=== PATIENT | male | born 1950 | race Two or more races ===

== ENCOUNTER 2021-01-18 10:04 | Outpatient (CLI) | payer OTHER | END 2021-01-18 10:05 | disposition home or self-care (01) | LOC: LAB 10:04 | PROVIDERS: ATTEND Urology | DX: R97.20 Elevated prostate specific antigen [PSA] (principal) ==

== ENCOUNTER 2021-02-09 07:35 | Outpatient (CLI) | payer OTHER | END 2021-02-09 07:41 | disposition home or self-care (01) | LOC: SONOGRAMA 07:35 | PROVIDERS: ATTEND Urology | DX: C61 Malignant neoplasm of prostate (principal); D29.1 Benign neoplasm of prostate; R97.20 Elevated prostate specific antigen [PSA] ==

== ENCOUNTER 2021-02-26 08:58 | Outpatient (CLI) | payer OTHER | END 2021-02-26 09:09 | disposition home or self-care (01) | LOC: TOM 08:58 | PROVIDERS: ATTEND Urology | DX: R10.84 Generalized abdominal pain (principal); C61 Malignant neoplasm of prostate ==